=== PATIENT | female | born 1975 | race Caucasian/White ===

== ENCOUNTER 2018-08-07 16:12 | Emergency (ER) | payer BC, MEDICAID ==
[~2018-08-07] VITALS: Ht 162.6 cm; Wt 104.1 kg
[2018-08-07 16:33] VITALS: Ht 162.6 cm; Wt 104.1 kg
[2018-08-07] MEDS ORDERED: SODIUM CHLORIDE 0.9% 1L BAG IV* STA (16:50)
[2018-08-07] MEDS ORDERED: ACETAMINOPHEN 325 MG TAB PO ONE (17:00)
[2018-08-07] MEDS ORDERED: CEFTRIAXONE 1 GM/50 ML (PMX) 50 ML IVPB ONE (17:00)
--- NOTE | 2018-08-07 17:18 | ERD ---
ER Documentation Chief Complaint Chief Complaint constipated, fever; LUQ abd pain radiating to back HPI 42-year-old woman presents with 1 day of fever, chills, dysuria, and left flank pain. She has had some nausea but no vomiting she denies vaginal discharge, no chest pain or shortness of breath, no cough, no URI symptoms. Her flank pain is nonradiating nonexertional ROS All systems reviewed and are negative except as per history of present illness. Medications Home Meds Active Scripts Ondansetron Hcl* (Zofran*) 4 Mg Tablet, 4 MG PO Q8H PRN for NAUSEA AND/OR VOMITING, #15 TAB Prov:BASSEM DE SOUZA MD 08/07/18 Ibuprofen* (Motrin*) 600 Mg Tab, 600 MG PO Q8 PRN for PAIN AND/OR INFLAMMATION, #30 TAB Prov:BASSEM DE SOUZA MD 08/07/18 Cephalexin* (Keflex*) 500 Mg Capsule, 500 MG PO QID for 7 Days, CAP Prov:BASSEM DE SOUZA MD 08/07/18 Allergies Allergies: Coded Allergies: No Known Allergy (Unverified , 02/10/14) FmHx Family History: No diabetes Physical Exam Vitals Vital Signs Date Temp Pulse Resp B/P (MAP) Pulse Ox O2 O2 Flow FiO2 Time Delivery Rate 08/07/18 102.6 17:17 08/07/18 102.6 123 19 137/63 98 Room Air 17:17 (87) 08/07/18 103.2 131 20 136/63 97 16:33 (87) Physical Exam GENERAL: Well-developed, well-nourished, febrile, nontoxic in appearance HEENT: Moist mucous membranes, pink conjunctiva, no Kernig's sign NEURO: Alert and oriented 3, cranial nerves II through XII intact bilaterally, pupils equal round reactive to light, no focal deficits or facial asymmetry, sensation intact distally Strength 5/5 in upper and lower extremities bilaterally CARDIAC: Tachycardic and regular LUNGS: Clear bilaterally no wheezing crackles or stridor ABDOMEN: Soft nontender, no guarding, no rigidity, no rebound, no psoas sign no obturator sign. SKIN: Warm and dry to touch, no abrasions, contusions, or hematomas, no lacerations, no ecchymosis, no target lesions, and without ulcers EXTREMITIES: No clubbing cyanosis or edema, calves are bilaterally symmetrical, no Homans sign, no popliteal cord sign. Distal pulses equal and bilateral PSYCH: Normal affect without agitation or irritability Result Diagram: 08/07/18 1706 08/07/18 1706 Results 24 hrs Laboratory Tests Test 08/07/18 12:57 08/07/18 17:06 08/07/18 17:18 08/07/18 17:32 Urine NEGATIVE Test White Blood Count 6.3 10^3/ul Red Blood Count 4.42 10^6/ul Hemoglobin 12.9 g/dl Hematocrit 38.6 % Mean Corpuscular 87.3 fl Volume Mean Corpuscular 29.2 pg Hemoglobin Mean Corpuscular 33.4 g/dl Hemoglobin Concent Red Cell 12.3 % Distribution Width Platelet Count 133 10^3/UL Mean Platelet 11.6 fl Volume Immature 0.500 % Granulocytes % Neutrophils % 94.5 % Lymphocytes % 3.8 % Monocytes % 0.6 % Eosinophils % 0.3 % Basophils % 0.3 % Nucleated Red 0.0 /100WBC Blood Cells % Immature 0.030 10^3/ul Granulocytes # Neutrophils # 5.9 10^3/ul Lymphocytes # 0.2 10^3/ul Monocytes # 0.0 10^3/ul Eosinophils # 0.0 10^3/ul Basophils # 0.0 10^3/ul Nucleated Red 0.0 10^3/ul Blood Cells # Prothrombin Time 13.6 Sec Prothrombin Time 1.1 Ratio INR International 1.03 Normalized Ratio Activated 30.[address] Time Urine Color YELLOW Urine Clarity CLOUDY Urine pH 5.0 Urine Specific 1.016 [place] Urine Ketones NEGATIVE mg/dL Urine Nitrite POSITIVE mg/dL Urine Bilirubin NEGATIVE mg/dL Urine Urobilinogen NEGATIVE mg/dL Urine Leukocyte 3+ Dayami/ul Esterase Urine Microscopic 6 /HPF RBC Urine Microscopic > 182 /HPF WBC Urine Squamous FEW /HPF Epithelial Cells Urine Bacteria FEW /HPF Urine Hemoglobin 2+ mg/dL Urine Glucose 3+ mg/dL Urine Total 2+ mg/dl Protein Sodium Level 136 mmol/L Potassium Level 3.5 mmol/L Chloride Level 106 mmol/L Carbon Dioxide 21 mmol/L Level Anion Gap 9 Blood Urea 10 mg/dl Nitrogen Creatinine 0.55 mg/dl Est Glomerular > 60 mL/min Filtrat Rate mL/min Glucose Level 367 mg/dl Calcium Level 9.1 mg/dl Total Bilirubin 0.8 mg/dl Direct Bilirubin 0.00 mg/dl Indirect Bilirubin 0.8 mg/dl Aspartate Amino 29 IU/L Transf (AST/SGOT) Alanine 26 IU/L Aminotransferase ( ALT/SGPT) Alkaline 212 IU/L Phosphatase Troponin I < 0.012 ng/ml Total Protein 7.2 g/dl Albumin 3.5 g/dl Globulin 3.70 g/dl Albumin/Globulin 0.94 Ratio Lipase 126 U/L POC Venous Lactate 2.1 mmol/L Bedside Glucose 317 mg/dL Test 08/07/18 19:12 POC Venous Lactate 1.7 mmol/L Current Medications Medications Dose Sig/Zane Start Time Status Last (Trade) Ordered Route PRN Stop Time Admin Dose Reason Admin Sodium 3,120 ml BOLUS OVER 2 08/07/18 DC 08/07/18 Chloride HOURS STAT 16:50 17:18 (NS) IV* 08/07/18 16:55 650 mg ONCE ONCE 08/07/18 DC 08/07/18 Acetaminophen PO 17:00 17:17 (Tylenol 08/07/18 17:01 Tab) Ceftriaxone 50 ml @ ONCE ONCE 08/07/18 DC 08/07/18 Sodium 100 mls/hr IVPB 17:00 17:17 08/07/18 17:29 Magnesium 50 ml @ 25 ONCE ONCE 08/07/18 DC 08/07/18 Sulfate mls/hr IVPB 17:30 17:33 08/07/18 19:29 Procedures/MDM IV line was established patient was placed on district wire chief rhythm strip revealed a sinus tachycardia at 120 bpm with upright P and T waves. Patient was afebrile EKG performed, read by me revealed a sinus tachycardia at 122 bpm, normal axis, narrow QRS complex, no concerning ST elevations or depressions noted. Prolonged QT at 615 ms I ordered over 3 L normal saline IV, acetaminophen p.o. for fever, ceftriaxone [address] scan of the abdomen and pelvis was performed,IMPRESSION: 1. Findings suspicious for diffuse urinary tract infection involving bilateral kidneys, the ureters and urinary bladder, with edema of the kidneys, mild bilateral hydroureter without nephroureterolithiasis and left worse than right ureteral wall thickening/edema with urinary bladder wall thickening. 2. Mild hepatomegaly demonstrating morphology suspicious for cirrhotic change. Clinical correlation recommended with consideration for further evaluation with hepatic ultrasound. 3. Minimal left colonic diverticulosis without evidence of acute diverticulitis. The bowel is unobstructed without evidence of perforation or abscess, and the appendix appears normal. I also administered magnesium 2 g IV for prolonged QT. CBC and electrolytes were normal, liver function tests were normal, urinalysis was positive for infection. Lactic acid was initially just above normal at 2.1 and then fell with IV fluids to 1.7 Patient's infectious symptoms have not stabilized and the patient is at risk of rapid decompensation. The patient will be admitted for careful hydration, antibiotic therapy, and infectious source control. SEVERE SEPSIS CRITERIA: Infectious source: UTI/pyelonephritis End organ damage indicated by: None SEPSIS MANAGEMENT Time of recognition of sepsis: Upon arrival. Time of recognition of severe sepsis: No severe sepsis at this time. Time of recognition of septic shock: No septic shock at this time. 3 HOUR BUNDLE Blood cultures x 2 before broad-spectrum antibiotics: Yes 30 ml/kg NS bolus completed Initial lactate 2.1 Repeat lactate 1.7 SEPTIC SHOCK ASSESSMENT: No lactic acid > 4.0 No persistent hypotension (SBP < 90 or 40 mmHg drop, MAP < 65) despite 30 mL/kg IV fluid bolus VOLUME REASSESSMENT FOR SEPTIC SHOCK: Reevaluation Time: 1800 Temp 99 F, BP 140/80, heart rate 100, respiratory rate 18 breaths/min, temp 99.9 F Heart tachycardic and regular Lungs no crackles Skin warm & dry Cap Refill less than 2 seconds Peripheral pulses radially present PERSISTENT HYPOTENSION TREATMENT: Comfort care no Central line not Required Vasopressor started not required I considered further perfusion assessment with CVP measurement, SCVO2, bedside ultrasound volume assessment, passive leg raise, trial of further fluid bolus. And proceeded with 30 ml/kg fluid bolus of NSS, broad spectrum antibiotics, and admission. CRITICAL CARE: Critical care time 35 minutes, this was time separate from other billable procedures. Emergent fluid management while maintaining close respiratory support. Provision of immediate and broad-spectrum antibiotic therapy. Simultaneous assessment for possible sources in order to direct targeted therapy. Consideration for invasive and chemical support to prevent cardiopulmonary collapse. Critical care time is independent of procedures performed. Repeat EKG was performed, read by me revealed a sinus tachycardia at 100 bpm, normal axis, narrow QRS complex, no concerning ST elevations or depressions noted, prolonged QT of 546 ms although this is down from 615 ms. I suspect her QT will normalize with continued oral hydration therapy at home, which was recommended by me Patient feels much better after IV fluid therapy and is without complaints of pain or nausea. She had no episodes of vomiting while here and her vital signs are normal at this time. She is otherwise healthy and will be discharged with oral antibiotics times 1 week I did give her instructions to return to the ER if her symptoms continue or worsen. Differential diagnoses considered, included but not limited to acute coronary syndrome, pulmonary embolism, aortic dissection, abdominal aortic aneurysm, sepsis, stroke, meningitis, encephalitis, pneumonia, appendicitis, agnieszka cystitis, bowel obstruction, pyelonephritis, nephrolithiasis, cystitis, as well as metabolic, hematologic, and electrolyte abnormalities. As well as abscess, cellulitis, fractures, and dislocations. Patient feels much better at this time, and vital signs are normal, symptoms have improved. I did give strict instructions to return to the ED if symptoms continue or worsen, patient will otherwise follow-up with primary care physician. Patient understood instructions and agreed to plan. Disclaimer: Inadvertent spelling and grammatical errors are likely due to EHR/dictation software use and do not reflect on the overall quality of patient care. Also, please note that the electronic time recorded on this note does not necessarily reflect the actual time of the patient encounter. Departure Diagnosis: Primary Impression: Prolonged QT interval Additional Impression: Acute pyelonephritis Condition: Good BASSEM DE SOUZA MD Aug 07, 2018 17:18
[2018-08-07] MEDS ORDERED: MAGNESIUM SULFATE 2 GM/50 ML 50 ML IVPB ONE (17:30)
[2018-08-07] MEDS ORDERED: ONDA4TAB8 PO (19:36)
[2018-08-07] MEDS ORDERED: CEPH-443 PO (19:36)
[2018-08-07] MEDS ORDERED: IBUP-1542 PO (19:36)
[2018-08-07 19:58] VITALS: BP 103/55; PULSE 102; RESP 18
== END 2018-08-07 19:59 | disposition home or self-care (01) ==
LOC: FTE 16:12
DX: N12 Tubulo-interstitial nephritis, not specified as acute or chronic (principal); I45.81 Long QT syndrome
CPT/HCPCS: 36415; 74176; 80053; 81001; 82962; 83605; 83690; 84484; 84703; 85025; 85610; 85730; 87040; 87086; 93005; 96374; 96375; J0696; J3475; J7030; Z7502; Z7610